=== PATIENT | male | born 1945 | race Caucasian/White ===

== ENCOUNTER → 2017-03-22 | Outpatient (CLI) | payer MEDICARE, MEDICAID ==
[~2017-03-22] MED LIST: ALBUTEROL0.83 MG/ML IH; ASPIRIN E.C. 8181 MG PO; HYTRIN 1MG C1 MG/CAP PO; IMDUR 30MG30 MG/TAB PO; K-DUR 10 MEQ T10 MEQ PO; LASIX 20MG TABL20 MG PO; NASAREL0.025 MG/1 NAS; NITROSTAT0.6 MG SL; NORCO 325 MG-51 TAB PO; PRINIVIL20 MG PO; PROAIR HFA0.09 MG/AC IH; RT ADVAIR HFA 1112 G IH; ULTRAM 50MG TAB50 MG PO; ZANAFLEX 4MG TAB4 MG PO
== END ==
LOC: MHCPAIN 12:46
DX: G89.29 Other chronic pain (principal); M47.27 Other spondylosis with radiculopathy, lumbosacral region; M53.3 Sacrococcygeal disorders, not elsewhere classified; M19.90 Unspecified osteoarthritis, unspecified site; Z87.891 Personal history of nicotine dependence; Z79.82 Long term (current) use of aspirin
CPT/HCPCS: G0463

== ENCOUNTER → 2017-04-22 | Outpatient (CLI) | payer MEDICARE, MEDICAID | LOC: MHCPAIN 08:27 | DX: G89.29 Other chronic pain (principal); M47.27 Other spondylosis with radiculopathy, lumbosacral region; M53.3 Sacrococcygeal disorders, not elsewhere classified; Z87.891 Personal history of nicotine dependence; Z79.82 Long term (current) use of aspirin | CPT/HCPCS: G0463 ==

== ENCOUNTER 2017-06-08 09:27 | Day surgery (SDC) | payer MEDICARE, MEDICAID ==
[~2017-06-08] VITALS: Ht 172.7 cm; Wt 110.6 kg
[2017-06-08] MEDS ORDERED: ASPIRIN E.C. 8181 MG PO (09:40)
[2017-06-08] MEDS ORDERED: PRINIVIL20 MG PO (09:41)
[2017-06-08] MEDS ORDERED: LASIX 20MG TABL20 MG PO (09:41)
[2017-06-08] MEDS ORDERED: ULTRAM 50MG TAB50 MG PO (09:42)
[2017-06-08] MEDS ORDERED: HYTRIN 1MG C1 MG/CAP PO (09:50)
[2017-06-08] MEDS ORDERED: K-DUR 10 MEQ T10 MEQ PO (09:51)
[2017-06-08] MEDS ORDERED: PROAIR HFA0.09 MG/AC IH (09:52)
[2017-06-08] MEDS ORDERED: ALBUTEROL0.83 MG/ML IH (09:53)
[2017-06-08] MEDS ORDERED: NASAREL0.025 MG/1 NAS (09:54)
[2017-06-08] MEDS ORDERED: NITROSTAT0.6 MG SL (09:55)
[2017-06-08] MEDS ORDERED: ZANAFLEX 4MG TAB4 MG PO (09:56)
[2017-06-08] MEDS ORDERED: RT ADVAIR HFA 1112 G IH (09:57)
[2017-06-08 10:11] LABS: HEMATOCRIT 37.8 % (42.0-52.0); HEMOGLOBIN 12.2 g/dl (13.5-18.0); MEAN CELL VOLUME 93 fl (80.0-100.0); MEAN CORPUSCULAR HEMOGLOBIN 30 pg (27.0-31.0); MEAN CORPUSCULAR HGB CONC 32 g/dl (33.0-37.0); MEAN PLATELET VOLUME 9.5 fl (7.4-10.4); PLATELET COUNT 146 K/mm3 (130-400); RED BLOOD COUNT 4.08 M/mm3 (4.20-5.60)
[2017-06-08 10:22] LABS: CALCIUM 9.3 mg/dL (8.4-10.2); CREATININE, serum 1.12 mg/dL (0.66-1.25); POTASSIUM 4.2 mmol/L (3.4-5.0); WHITE BLOOD COUNT 41.1 K/mm3 (4.8-10.8)
[2017-06-08 10:28] LABS: INR 1.1 (0.8-3.0); PROTHROMBIN TIME 11.8 SECONDS (9.7-12.8)
[2017-06-08 10:30] VITALS: BP 134/74; PULSE 67; TEMP 98
[2017-06-08 12:47] VITALS: BP 134/67; PULSE 67
[2017-06-08 15:20] VITALS: BP 134/67; PULSE 67; TEMP 98
[2017-06-08 15:50] VITALS: BP 135/68; PULSE 67; TEMP 98
[2017-06-08 16:40] VITALS: BP 140/67; PULSE 65; TEMP 98
[2017-06-08 18:00] VITALS: BP 132/48; PULSE 72; TEMP 97.7
== END 2017-06-08 21:35 | disposition home or self-care (01) ==
LOC: COL.CAR 09:27 → MEDICAL 15:50 → COL.CAR 21:35
PROVIDERS: Internal Medicine Interventional Cardiology
DX: I49.5 Sick sinus syndrome (principal); I47.2 Ventricular tachycardia; I10 Essential (primary) hypertension; I45.5 Other specified heart block; I25.10 Atherosclerotic heart disease of native coronary artery without angina pectoris; Z95.5 Presence of coronary angioplasty implant and graft; Z87.891 Personal history of nicotine dependence; Z82.49 Family history of ischemic heart disease and other diseases of the circulatory system; Z83.3 Family history of diabetes mellitus; Z82.3 Family history of stroke
CPT/HCPCS: OP; C1785; C1894; C1898; J0690; J2250; J3010; J7040

== ENCOUNTER 2017-06-12 00:43 | Emergency (ER) | payer MEDICARE, MEDICAID ==
[~2017-06-12] VITALS: Ht 172.7 cm; Wt 110.9 kg
[~2017-06-12 00:43] MED LIST changes: -IMDUR 30MG30 MG/TAB PO; -NORCO 325 MG-51 TAB PO
[2017-06-12 00:48] VITALS: TEMP 98.3
[2017-06-12 01:11] LABS: MEAN CELL VOLUME 93 fl (80.0-100.0); MEAN CORPUSCULAR HGB CONC 32 g/dl (33.0-37.0); MEAN PLATELET VOLUME 9.8 fl (7.4-10.4); PLATELET COUNT 110 K/mm3 (130-400); RED BLOOD COUNT 3.59 M/mm3 (4.20-5.60)
[2017-06-12 01:25] LABS: HEMATOCRIT 33.4 % (42.0-52.0); HEMOGLOBIN 10.8 g/dl (13.5-18.0); MEAN CORPUSCULAR HEMOGLOBIN 30 pg (27.0-31.0); WHITE BLOOD COUNT 39.6 K/mm3 (4.8-10.8)
[2017-06-12 01:26] LABS: ADD PATHOLOGY DIFF REVIEW NO
[2017-06-12 01:29] LABS: INR 1.1 (0.8-3.0); PROTHROMBIN TIME 12.3 SECONDS (9.7-12.8)
[2017-06-12 01:30] LABS: ADJUSTED CALCIUM 9.3 mg/dL (8.4-10.2); ALANINE AMINOTRANSFERASE 36 U/L (21-72); ALBUMIN 3.8 gm/dL (3.5-5.0); ALKALINE PHOSPHATASE 75 U/L (50-136); ANION GAP 10 mmol/L (7-16); BILIRUBIN,TOTAL 0.8 mg/dL (0.0-1.0); BLOOD UREA NITROGEN 18 mg/dL (9-20); CALCIUM 9.1 mg/dL (8.4-10.2); CARBON DIOXIDE 25 mmol/L (22-30); CHLORIDE 103 mmol/L (98-107); CREATININE, serum 1.19 mg/dL (0.66-1.25); GLUCOSE 134 mg/dL (74-106); LIPASE 62 U/L (23-300); POTASSIUM 4.4 mmol/L (3.4-5.0); SODIUM 138 mmol/L (137-145)
[2017-06-12 01:31] LABS: PARTIAL THROMBOPLASTIN TIME 29.9 SECONDS (26.0-37.0)
[2017-06-12 01:42] LABS: B-TYPE NATRIURETIC PEPTIDE 261 pg/mL (0-125)
[2017-06-12 01:43] LABS: TROPONIN-I < 0.012 ng/mL (0.000-0.034)
[2017-06-12 02:11] LABS: BAND 3 % (0-10); EOSINOPHIL 3 % (0-4); NEUTROPHILS 28 % (42.0-75.2); PLATELET ESTIMATE DECREASED (NORMAL); TOTAL CELLS COUNTED 100
[2017-06-12 02:15] LABS: LYMPHOCYTE 62 % (20.0-51.0)
[2017-06-12 05:21] VITALS: BP 124/77; PULSE 77
== END 2017-06-12 05:26 | disposition short-term general hospital (02) ==
LOC: COL.ER 00:43
PROVIDERS: Emergency Medicine
DX: T82.198A Other mechanical complication of other cardiac electronic device, initial encounter (principal); I25.2 Old myocardial infarction; Z95.0 Presence of cardiac pacemaker
CPT/HCPCS: J7030; J7050; Q9967

== ENCOUNTER 2017-08-08 10:27 | Emergency (ER) | payer MEDICARE, MEDICAID ==
[~2017-08-08] VITALS: Ht 172.7 cm; Wt 111.4 kg
[2017-08-08 10:36] VITALS: TEMP 97.3
[2017-08-08 10:57] LABS: MEAN CELL VOLUME 91 fl (80.0-100.0); MEAN CORPUSCULAR HGB CONC 32 g/dl (33.0-37.0); MEAN PLATELET VOLUME 9.6 fl (7.4-10.4); PLATELET COUNT 126 K/mm3 (130-400); RED BLOOD COUNT 3.64 M/mm3 (4.20-5.60); REDCELL DISTRIBUTION WIDTH-CV 13.9 % (11.5-14.5)
[2017-08-08 10:59] LABS: HEMATOCRIT 33.2 % (42.0-52.0); HEMOGLOBIN 10.6 g/dl (13.5-18.0); MEAN CORPUSCULAR HEMOGLOBIN 29 pg (27.0-31.0)
[2017-08-08 11:07] LABS: INR 1.1 (0.8-3.0); PROTHROMBIN TIME 12.9 SECONDS (9.7-12.8)
[2017-08-08 11:09] LABS: ALANINE AMINOTRANSFERASE 38 U/L (21-72); ALBUMIN 4.1 gm/dL (3.5-5.0); ALKALINE PHOSPHATASE 87 U/L (50-136); ANION GAP 9 mmol/L (7-16); AST,SGOT 38 U/L (15-37); BILIRUBIN,TOTAL 0.8 mg/dL (0.0-1.0); BLOOD UREA NITROGEN 26 mg/dL (9-20); CALCIUM 9.4 mg/dL (8.4-10.2); CARBON DIOXIDE 24 mmol/L (22-30); CHLORIDE 105 mmol/L (98-107); CREATININE, serum 1.19 mg/dL (0.66-1.25); GLUCOSE 103 mg/dL (74-106); PARTIAL THROMBOPLASTIN TIME 28.4 SECONDS (26.0-37.0); POTASSIUM 3.9 mmol/L (3.4-5.0); SODIUM 138 mmol/L (137-145); TOTAL PROTEIN 6.6 gm/dL (6.4-8.2)
[2017-08-08 11:12] LABS: BAND 1 % (0-10); EOSINOPHIL 1 % (0-4); NEUTROPHILS 23 % (42.0-75.2)
[2017-08-08 11:13] LABS: PLATELET ESTIMATE DECREASED (NORMAL)
[2017-08-08 11:14] LABS: HYPOCHROMIA 1+; POLYCHROMASIA 1+
[2017-08-08 11:15] LABS: LYMPHOCYTE 70 % (20.0-51.0)
[2017-08-08 11:20] LABS: TROPONIN-I < 0.012 ng/mL (0.000-0.034)
[2017-08-08 15:40] VITALS: BP 132/73; PULSE 75
== END 2017-08-08 15:44 | disposition left against medical advice (07) ==
LOC: COL.ER 10:27
PROVIDERS: Emergency Medicine
DX: I20.9 Angina pectoris, unspecified (principal); I10 Essential (primary) hypertension; E78.5 Hyperlipidemia, unspecified; Z95.0 Presence of cardiac pacemaker; Z85.6 Personal history of leukemia; Z79.82 Long term (current) use of aspirin

== ENCOUNTER 2017-09-19 07:47 | Day surgery (SDC) | payer MEDICARE, MEDICAID ==
[2017-09-19] VITALS (10 sets, daily range): BP systolic 109–142; BP diastolic 59–87; PULSE 64–80; TEMP 97.8
[~2017-09-19] VITALS: Ht 172.8 cm; Wt 105.7 kg
[2017-09-19 08:41] LABS: MEAN CELL VOLUME 89 fl (80.0-100.0); MEAN CORPUSCULAR HGB CONC 32 g/dl (33.0-37.0); MEAN PLATELET VOLUME 9.6 fl (7.4-10.4); PLATELET COUNT 140 K/mm3 (130-400); RED BLOOD COUNT 4.12 M/mm3 (4.20-5.60); REDCELL DISTRIBUTION WIDTH-CV 14.5 % (11.5-14.5)
[2017-09-19 08:42] LABS: INR 1.1 (0.8-3.0); PROTHROMBIN TIME 12.8 SECONDS (9.7-12.8)
[2017-09-19 08:45] LABS: CALCIUM 9.3 mg/dL (8.4-10.2); CREATININE, serum 1.1 mg/dL (0.66-1.25); POTASSIUM 4.1 mmol/L (3.4-5.0)
[2017-09-19 08:47] LABS: HEMATOCRIT 36.6 % (42.0-52.0); HEMOGLOBIN 11.8 g/dl (13.5-18.0); MEAN CORPUSCULAR HEMOGLOBIN 29 pg (27.0-31.0)
[2017-09-19] MEDS ORDERED: IMDUR 30MG30 MG/TAB PO (11:21)
== END 2017-09-19 17:31 | disposition home or self-care (01) ==
LOC: COL.CAR 07:47
PROVIDERS: Internal Medicine Cardiovascular Disease
DX: I25.82 Chronic total occlusion of coronary artery (principal); I48.0 Paroxysmal atrial fibrillation; R07.9 Chest pain, unspecified; I10 Essential (primary) hypertension; Z95.0 Presence of cardiac pacemaker; C91.10 Chronic lymphocytic leukemia of B-cell type not having achieved remission; I25.10 Atherosclerotic heart disease of native coronary artery without angina pectoris; J44.9 Chronic obstructive pulmonary disease, unspecified; I25.2 Old myocardial infarction; Z96.642 Presence of left artificial hip joint; Z88.8 Allergy status to other drugs, medicaments and biological substances; Z87.891 Personal history of nicotine dependence; Z68.36 Body mass index [BMI] 36.0-36.9, adult; E78.5 Hyperlipidemia, unspecified; M19.90 Unspecified osteoarthritis, unspecified site
CPT/HCPCS: J1644; J2250; J3010; J7030; Q9967

== ENCOUNTER → 2018-07-20 | Outpatient (CLI) | payer MEDICARE, MEDICAID ==
[~2018-07-20] MED LIST changes: +IMDUR 30MG30 MG/TAB PO
== END ==
LOC: COL.VAS 13:36
DX: R60.0 Localized edema (principal)

== ENCOUNTER 2019-01-17 13:26 | Emergency (ER) | payer MEDICARE, MEDICAID ==
[~2019-01-17] VITALS: Ht 172.7 cm; Wt 110.9 kg
[2019-01-17 13:38] VITALS: BP 140/84; TEMP 97.1
[2019-01-17] MEDS ORDERED: NORCO 325 MG-51 TAB PO (16:26)
[2019-01-17 18:41] VITALS: PULSE 98
== END 2019-01-17 18:40 | disposition home or self-care (01) ==
LOC: COL.ER 13:26
DX: M25.562 Pain in left knee (principal); E78.5 Hyperlipidemia, unspecified; I10 Essential (primary) hypertension; J44.9 Chronic obstructive pulmonary disease, unspecified; Z95.0 Presence of cardiac pacemaker

== ENCOUNTER → 2019-01-22 | Outpatient (CLI) | payer MEDICARE, MEDICAID ==
[~2019-01-22] MED LIST changes: +NORCO 325 MG-51 TAB PO
== END ==
LOC: COL.VAS 12:55
DX: M79.605 Pain in left leg (principal); R79.1 Abnormal coagulation profile

== ENCOUNTER → 2019-02-09 | Outpatient (CLI) | payer MEDICARE, MEDICAID | LOC: COL.RAD 07:46 | DX: M16.11 Unilateral primary osteoarthritis, right hip (principal) | CPT/HCPCS: J3301; Q9967 ==

== ENCOUNTER → 2020-05-26 | Outpatient (CLI) | payer MEDICARE, MEDICAID ==
[2020-05-26 21:50] LABS: CALCIUM 8.9 mg/dL (8.4-10.2); CREATININE, serum 0.99 (0.66-1.25); POTASSIUM 3.8 mmol/L (3.4-5.0)
[2020-05-27 08:05] LABS: BASO % 0.6 % (0.0-2.0); EOS # 0.5 (0.0-0.7); EOS % 6.3 % (0-4.0); GRAN # 4.7 (1.4-6.5); GRAN % 64.2 % (42.2-75.2); HEMATOCRIT 40.9 % (42.0-52.0); HEMOGLOBIN 13.1 g/dl (13.5-18.0); LYMPH # 1.2 (1.2-3.4); LYMPH % 16.4 % (20.0-51.0); MEAN CELL VOLUME 95 fl (80.0-100.0); MEAN CORPUSCULAR HEMOGLOBIN 30 pg (27.0-31.0); MEAN CORPUSCULAR HGB CONC 32 g/dl (33.0-37.0); MEAN PLATELET VOLUME 10.2 fl (7.4-10.4); MONO # 0.9 (0.1-0.6); MONO % 12.4 % (1.7-9.3); PLATELET COUNT 207 K/mm3 (130-400); RED BLOOD COUNT 4.32 M/mm3 (4.20-5.60); REDCELL DISTRIBUTION WIDTH-CV 13.2 % (11.5-14.5)
== END ==
LOC: ZCOL.LAB 19:47
PROVIDERS: Family Medicine
DX: Z01.89 Encounter for other specified special examinations (principal)

== ENCOUNTER 2020-10-29 16:38 | Observation (INO) | payer MEDICARE, MEDICAID ==
[~2020-10-29] VITALS: Ht 172.7 cm; Wt 110.7 kg
[~2020-10-29 16:38] MED LIST changes: +AMOXICILLIN 8751 TAB PO; +CARDIZEM CD 12120 MG PO; +LEXAPRO20 MG PO; +VERELAN120 MG PO
[2020-10-29 17:20] LABS: ALANINE AMINOTRANSFERASE 61 U/L (4-49); ALBUMIN 3.1 gm/dL (3.5-5.0); ALKALINE PHOSPHATASE 94 U/L (50-136); ANION GAP 7 mmol/L (7-16); AST,SGOT 86 U/L (15-37); BILIRUBIN,TOTAL 0.9 mg/dL (0.0-1.0); BLOOD UREA NITROGEN 16 mg/dL (9-20); CALCIUM 8.6 mg/dL (8.4-10.2); CARBON DIOXIDE 28 mmol/L (22-30); CHLORIDE 104 mmol/L (98-107); CREATININE, serum 0.94 (0.66-1.25); GLUCOSE 96 mg/dL (74-106); POTASSIUM 3.5 mmol/L (3.4-5.0); SODIUM 139 mmol/L (137-145); TOTAL PROTEIN 5.7 gm/dL (6.4-8.2)
[2020-10-29 17:27] LABS: HEMOGLOBIN 11.6 g/dl (13.5-18.0); MEAN CELL VOLUME 95 fl (80.0-100.0); MEAN CORPUSCULAR HEMOGLOBIN 31 pg (27.0-31.0); MEAN CORPUSCULAR HGB CONC 32 g/dl (33.0-37.0); MEAN PLATELET VOLUME 10.5 fl (7.4-10.4); PLATELET COUNT 236 K/mm3 (130-400); RED BLOOD COUNT 3.78 M/mm3 (4.20-5.60); REDCELL DISTRIBUTION WIDTH-CV 13.4 % (11.5-14.5)
[2020-10-29 17:29] LABS: HEMATOCRIT 35.9 % (42.0-52.0)
[2020-10-29 17:32] LABS: TROPONIN-I < 0.012 ng/mL (0.000-0.035)
[2020-10-29 18:39] LABS: BAND 2 % (0-10); EOSINOPHIL 1 % (0-4); LYMPHOCYTE 9 % (20.0-51.0); NEUTROPHILS 80 % (42.0-75.2)
[2020-10-29 18:59] LABS: COLLECTION METHOD CLEAN CATCH
[2020-10-29 19:09] LABS: MUCOUS Present /lpf; PH 5 (5-8); SQUAMOUS EPITHELIAL 0-2 /hpf; URINE APPEARANCE Clear; URINE BACTERIA None Seen /hpf; URINE BILIRUBIN Negative (NEGATIVE); URINE BLOOD Negative (NEGATIVE); URINE COLOR Yellow; URINE GLUCOSE Negative (NEGATIVE); URINE KETONE 1+ (NEGATIVE); URINE LEUKOCYTE ESTERASE Negative (NEGATIVE); URINE NITRATE Negative (NEGATIVE); URINE PROTEIN(semi-quant) 1+ (NEGATIVE); URINE RBC 0-2 /hpf; URINE UROBILINOGEN >=4.0 mg/dL (NEGATIVE)
[2020-10-29 20:31] VITALS: BP 178/89; PULSE 74; TEMP 98.9
[2020-10-29] MEDS ORDERED: VERAPAMIL120 MG/TA1 PO (20:51)
--- NOTE | 2020-10-29 21:10 | NUR ---
Patient to medical room 310 at this time with complaints of abdominal pain 03/27. 5 lap sites are noted on patient's abdomen; edges well approximated. Bowel sounds audible and abdomen is soft and obese. Patient is alert and oriented and ambulatory with SBA. Bilateral lower extremities are edematous with 2+ pitting. [place] catheter is placed per orders and patient is placed on contact isolation precautions pending CDIFF sample result. Patient oriented to fall precautions and call light system.
[2020-10-30] VITALS: BP 97/62; PULSE 65; TEMP 98
[2020-10-30 03:47] VITALS: BP 121/60; PULSE 68; TEMP 97.4
--- NOTE | 2020-10-30 06:30 | NUR ---
PT IS LAYING IN BED AT THIS TIME. DENIES ANY NEEDS AT THIS TIME. WILL CONTINUE TO MONITOR. WILL RETURN FOR ASSESSMENT. NO FURTHER CONCERNS AT THIS TIME.
[2020-10-30 07:44] VITALS: BP 149/90; PULSE 63; TEMP 97.4
--- NOTE | 2020-10-30 08:15 | NUR ---
PT IS REFUSING VERAPAMIL, STATES "I DON'T WANT THESE DOCTORS CHANGING MY CARDIAC MEDICATIONS WITHOUT DR. SHAFFER!"
--- NOTE | 2020-10-30 09:57 | NUR ---
PT RETURNED FROM CT. HAS C/O PAIN THAT HAS NOT DECREASED MUCH WITH THE MEDICATIONS GIVEN, WILL GIVE ANOTHER DOSE. PT HAS COMPLAINT OF CONSTIPATION AT THIS TIME, STATING "I WISH I COULD HAVE A BM THIS MORNING, IT FEELS LIKE I'M BACKED UP!" THERE ARE NO OTHER CONCERNS AT THIS TIME.
[2020-10-30 11:52] VITALS: BP 152/67; PULSE 64
--- NOTE | 2020-10-30 16:00 | NUR ---
SW met with the patient to discuss discharge plan and re-admit. The patient discharged on Tuesday, 10/28, and returned back home with homemaking services from [facility]. The patient was admitted yesterday for failure to thrive. The patient lives alone in [place]. He states that he has friend support in town. He reports needing assistance with ADLs before being admitted and has walkers. He receives home making services from [facility] and meals from the [facility]. He states that [facility] came out to see him, but really only gave him a list of different agencies that can help him. The patient's PCP is Dr. Kristen Tucker and he receives his medications from [facility]. He reports no difficulties obtaining his meds. The patient does not have a DPOA-HC in EMR, but he states that he does have one completed and that his friend, Yonas Yañez (ph#[phone]), is his DPOA-HC. Yonas lives in [place]. The patient reports that him and Yonas have a copy of the DPOA-HC. PT/OT worked with the patient and recommend home health vs post-acute rehab. SW discussed their recommendation and how he needed increased assistance before coming in. The patient states that he would be open to going somewhere for rehab when he left here and chose 1) [facility] 2) [facility]. SW contacted and faxed a referral to both facilities. Awaiting screens. SW attempted to contact his friend, Yonas, to review the above. SW left him a voicemail. *Discharge plan: Referrals out for SNF*
[2020-10-30 16:57] VITALS: BP 177/63; PULSE 85
--- NOTE | 2020-10-30 19:39 | NUR ---
PT HAD UNEVENTFUL DAY. DID NOT CALL FOR PAIN MEDICATIONS THROUGHOUT THE DAY. DOSED X2 FOR PAIN MANAGEMENT. PT IS GENERALLY UNPLEASANT ABOUT EVERYTHING, AND DOES NOT AGREE WITH HIS TREATMENT AT THIS TIME. HE STATES THAT HE SHOULD BE BEING TREATED BY A ELECTRODYNAMICIST IF THEY WANTED TO CHANGE HIS CARDIOLOGY MEDICATIONS. NO OTHER CONCERNS AT THIS TIME. REPORT GIVEN TO TEAM MEMBER RN.
--- NOTE | 2020-10-30 20:00 | NUR ---
Assessment complete. Patient is alert and oriented with a tolerable pain level in the abdomen at this time. 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 Lung sounds are clear. Bilateral lower extremity and feet edema is present with 2+ edema. No new concerns. Call light in reach.
[2020-10-30 20:10] VITALS: BP 133/67; PULSE 88; TEMP 98.7
[2020-10-31 00:01] VITALS: BP 113/67; PULSE 59; TEMP 97.5
[2020-10-31 04:00] VITALS: BP 149/67; PULSE 62; TEMP 98
--- NOTE | 2020-10-31 07:05 | NUR ---
Lying in bed with eyes open watching TV. Alert and oriented x4. Rates pain in abd 8/10, describes as constant, says that it is not really sharp but doesn't know how else to describe it. Lap sites x4 to abd ANANDA, all edges well approximated, no redness/swelling/discharge noted. Patient does have a lot of tenderness when lower abd has pressure applied or when lifting to look under pannus. Foely to dependent drainage with dark karlie urine with sediment noted. 2+ bilat lower extremity edema noted, which patient says that he has all the time. Patient would like pain medication if able to have. Denies additional needs.
[2020-10-31 07:25] VITALS: BP 174/85; PULSE 59; TEMP 98.2
--- NOTE | 2020-10-31 07:25 | NUR ---
Administer [place] as prescribed. Patient will order breakfast when ready.
[2020-10-31 08:01] LABS: HEMOGLOBIN 12.2 g/dl (13.5-18.0); MEAN CELL VOLUME 93 fl (80.0-100.0); MEAN CORPUSCULAR HEMOGLOBIN 31 pg (27.0-31.0); MEAN CORPUSCULAR HGB CONC 33 g/dl (33.0-37.0); MEAN PLATELET VOLUME 10.5 fl (7.4-10.4); PLATELET COUNT 212 K/mm3 (130-400); RED BLOOD COUNT 3.98 M/mm3 (4.20-5.60); REDCELL DISTRIBUTION WIDTH-CV 13.5 % (11.5-14.5)
[2020-10-31 08:04] LABS: HEMATOCRIT 36.8 % (42.0-52.0)
[2020-10-31 08:16] LABS: CALCIUM 8.4 mg/dL (8.4-10.2); CREATININE, serum 0.8 (0.66-1.25); MAGNESIUM 1.9 mg/dL (1.6-2.3); POTASSIUM 3.4 mmol/L (3.4-5.0)
[2020-10-31 08:17] VITALS: BP 167/60
[2020-10-31 08:46] LABS: BAND 4 % (0-10); LYMPHOCYTE 12 % (20.0-51.0); NEUTROPHILS 75 % (42.0-75.2)
[2020-10-31 08:47] LABS: PLATELET ESTIMATE NORMAL (NORMAL)
[2020-10-31 11:39] VITALS: BP 126/84; PULSE 62; TEMP 98
[2020-10-31] MEDS ORDERED: NORCO 325 MG-51 TAB PO (11:46)
[2020-10-31] MEDS ORDERED: AMOXICILLIN 8751 TAB PO (11:46)
[2020-10-31] MEDS ORDERED: LASIX 40MG TABL40 MG PO (11:47)
--- NOTE | 2020-10-31 11:50 | NUR ---
Lying in bed watching TV. Explain to the patient that Debo, social studies teacher, just received word that he has been accepted to [facility] for rehab. Explain that we will keep him updated on time for transport. Obtain Covid swab and send to lab at this time. Patient continues to have pain in lower abd and hip, is aware that it is too early to administer [place], and that I will bring as soon as we are able. Patient denies additional needs at this time.
[2020-10-31 11:57] VITALS: BP 126/84; PULSE 62; TEMP 98
[2020-10-31 12:03] LABS: ALBUMIN 2.9 gm/dL (3.5-5.0); BILIRUBIN UNCONJUGATED 0.3 mg/dL (0.0-1.1); BILIRUBIN,DIRECT 0.3 mg/dL (0.0-0.4); BILIRUBIN,TOTAL 0.6 mg/dL (0.0-1.0); TOTAL PROTEIN 5.6 gm/dL (6.4-8.2)
--- NOTE | 2020-10-31 12:11 | NUR ---
FRAN faxed updates to [facility] and [facility]. [facility] reports that they are able to accept the patient. SW updated the clinical team and the patient. The patient is to discharge today, 10/31, to [facility] for a skilled stay. Transportation was scheduled at 1400, via [facility]. FRAN informed the patient and his RN of the time. SW attempted to contact his friend, Yonas, to inform him of the time. SW left him a voicemail. No additional need at this time.
--- NOTE | 2020-10-31 12:36 | NUR ---
Message left at [facility] for the nurse to call this nurse back to give report.
--- NOTE | 2020-10-31 13:10 | NUR ---
Rating pain in abd /10 and in hip /10. Administer [place] as prescribed. Patient is aware that [facility] will be here around 1400 to pick him up. Denies additional needs.
--- NOTE | 2020-10-31 13:20 | NUR ---
Receive call from JASWINDER Flores at [facility]. Report provided.
--- NOTE | 2020-10-31 14:36 | NUR ---
[facility] here to pick up man patient. Patient assisted into wheelchair. Has all belongings packed up. [facility] staff assists patient out to vehicle.
== END 2020-10-31 14:36 ==
LOC: COL.ER 16:38 → SURG 18:23 → MEDICAL 23:45
PROVIDERS: Emergency Medicine; Family Medicine; ADMIT Internal Medicine
DX: R62.7 Adult failure to thrive (principal); A04.0 Enteropathogenic Escherichia coli infection; R32 Unspecified urinary incontinence; D72.829 Elevated white blood cell count, unspecified; R60.0 Localized edema; I48.91 Unspecified atrial fibrillation; I11.0 Hypertensive heart disease with heart failure; I50.20 Unspecified systolic (congestive) heart failure; I25.10 Atherosclerotic heart disease of native coronary artery without angina pectoris; I71.4 Abdominal aortic aneurysm, without rupture; D64.9 Anemia, unspecified; J44.9 Chronic obstructive pulmonary disease, unspecified; K80.20 Calculus of gallbladder without cholecystitis without obstruction; K57.90 Diverticulosis of intestine, part unspecified, without perforation or abscess without bleeding; E66.01 Morbid (severe) obesity due to excess calories; F32.9 Major depressive disorder, single episode, unspecified; F17.210 Nicotine dependence, cigarettes, uncomplicated; Z79.82 Long term (current) use of aspirin; Z20.822 Contact with and (suspected) exposure to COVID-19; Z79.899 Other long term (current) drug therapy; Z79.891 Long term (current) use of opiate analgesic; Z79.52 Long term (current) use of systemic steroids; Z96.642 Presence of left artificial hip joint; Z96.612 Presence of left artificial shoulder joint; Z88.8 Allergy status to other drugs, medicaments and biological substances
CPT/HCPCS: 99222-AI; G0378; J3010; J7030; Q9967

== ENCOUNTER 2020-11-24 16:14 | Inpatient (IN) | payer MEDICARE, MEDICAID ==
[~2020-11-24] VITALS: Ht 172.7 cm; Wt 110.8 kg
[~2020-11-24 16:14] MED LIST changes: +LASIX 40MG TABL40 MG PO; +VERAPAMIL120 MG/TA1 PO
[2020-11-24 17:51] LABS: ALBUMIN 3.4 gm/dL (3.5-5.0); BASO % 0.3 % (0.0-2.0); CALCIUM 8.9 mg/dL (8.4-10.2); CREATININE, serum 0.93 (0.66-1.25); EOS # 0.4 (0.0-0.7); EOS % 2.4 % (0-4.0); GRAN # 10.2 (1.4-6.5); HEMATOCRIT 40.5 % (42.0-52.0); HEMOGLOBIN 13.1 g/dl (13.5-18.0); LYMPH # 2.5 (1.2-3.4); LYMPH % 17.5 % (20.0-51.0); MEAN CELL VOLUME 92 fl (80.0-100.0); MEAN CORPUSCULAR HEMOGLOBIN 30 pg (27.0-31.0); MEAN CORPUSCULAR HGB CONC 32 g/dl (33.0-37.0); MEAN PLATELET VOLUME 10.7 fl (7.4-10.4); MONO # 1.1 (0.1-0.6); MONO % 7.9 % (1.7-9.3); PLATELET COUNT 274 K/mm3 (130-400); POTASSIUM 3.5 mmol/L (3.4-5.0); RED BLOOD COUNT 4.41 M/mm3 (4.20-5.60); REDCELL DISTRIBUTION WIDTH-CV 12.8 % (11.5-14.5); TOTAL PROTEIN 6.8 gm/dL (6.4-8.2)
[2020-11-24 18:24] LABS: C-REACTIVE PROTEIN 16.5 mg/dL (0.0-0.9)
[2020-11-24 18:38] LABS: COLLECTION METHOD IN
[2020-11-24 18:50] LABS: MUCOUS Present /lpf; PH 5 (5-8); SQUAMOUS EPITHELIAL None Seen /hpf; URINE APPEARANCE Cloudy; URINE BACTERIA Rare /hpf; URINE BILIRUBIN Negative (NEGATIVE); URINE BLOOD 3+ (NEGATIVE); URINE COLOR Yellow; URINE GLUCOSE Negative (NEGATIVE); URINE KETONE Negative (NEGATIVE); URINE LEUKOCYTE ESTERASE 3+ (NEGATIVE); URINE NITRATE Negative (NEGATIVE); URINE PROTEIN(semi-quant) 1+ (NEGATIVE); URINE RBC >50 /hpf; URINE UROBILINOGEN Negative (NEGATIVE)
[2020-11-24 21:30] VITALS: BP 150/75; PULSE 72; TEMP 97.8
[2020-11-24] MEDS ORDERED: ZOFRAN 4MG T4 MG/TAB PO (21:49)
[2020-11-24 23:10] VITALS: BP 180/80; PULSE 71; TEMP 98.5
[2020-11-25] VITALS (10 sets, daily range): BP systolic 110–145; BP diastolic 37–87; PULSE 63–82; TEMP 97.3–98.8
[2020-11-25 08:17] LABS: ALBUMIN 2.7 gm/dL (3.5-5.0); BILIRUBIN,TOTAL 0.4 mg/dL (0.0-1.0); CREATININE, serum 0.86 (0.66-1.25); POTASSIUM 3.6 mmol/L (3.4-5.0); TOTAL PROTEIN 5.3 gm/dL (6.4-8.2)
[2020-11-25 08:22] LABS: MEAN CELL VOLUME 92 fl (80.0-100.0); MEAN CORPUSCULAR HGB CONC 32 g/dl (33.0-37.0); MEAN PLATELET VOLUME 10.1 fl (7.4-10.4); PLATELET COUNT 247 K/mm3 (130-400); RED BLOOD COUNT 3.28 M/mm3 (4.20-5.60); REDCELL DISTRIBUTION WIDTH-CV 12.9 % (11.5-14.5)
[2020-11-25 08:32] LABS: HEMATOCRIT 30.1 % (42.0-52.0); HEMOGLOBIN 9.7 g/dl (13.5-18.0); MEAN CORPUSCULAR HEMOGLOBIN 30 pg (27.0-31.0)
[2020-11-25 09:30] LABS: BAND 7 % (0-10); EOSINOPHIL 5 % (0-4); LYMPHOCYTE 13 % (20.0-51.0); METAMYELOCYTE 1 % (0-0); NEUTROPHILS 67 % (42.0-75.2)
[2020-11-25 09:37] LABS: HYPOCHROMIA 1+; PLATELET ESTIMATE NORMAL (NORMAL)
[2020-11-25 14:24] LABS: HEMATOCRIT 29.9 % (42.0-52.0); HEMOGLOBIN 9.7 g/dl (13.5-18.0)
[2020-11-25 19:46] LABS: HEMATOCRIT 28.6 % (42.0-52.0); HEMOGLOBIN 9.3 g/dl (13.5-18.0)
[2020-11-26] VITALS (13 sets, daily range): BP systolic 80–168; BP diastolic 50–80; PULSE 61–76; TEMP 97.3–98.8
[2020-11-26 01:14] LABS: HEMATOCRIT 23.2 % (42.0-52.0); HEMOGLOBIN 7.5 g/dl (13.5-18.0)
[2020-11-26 06:54] LABS: CALCIUM 8.1 mg/dL (8.4-10.2); CREATININE, serum 0.96 (0.66-1.25); POTASSIUM 3.6 mmol/L (3.4-5.0)
[2020-11-26 06:55] LABS: MEAN CELL VOLUME 91 fl (80.0-100.0); MEAN CORPUSCULAR HGB CONC 33 g/dl (33.0-37.0); MEAN PLATELET VOLUME 10.1 fl (7.4-10.4); PLATELET COUNT 236 K/mm3 (130-400); REDCELL DISTRIBUTION WIDTH-CV 13.5 % (11.5-14.5)
[2020-11-26 07:15] LABS: HEMATOCRIT 28.3 % (42.0-52.0); HEMOGLOBIN 9.4 g/dl (13.5-18.0); MEAN CORPUSCULAR HEMOGLOBIN 30 pg (27.0-31.0)
[2020-11-26 08:32] LABS: BAND 9 % (0-10); BASOPHIL 1 % (0-2); EOSINOPHIL 2 % (0-4); LYMPHOCYTE 25 % (20.0-51.0); METAMYELOCYTE 1 % (0-0); NEUTROPHILS 56 % (42.0-75.2); PLATELET ESTIMATE NORMAL (NORMAL)
[2020-11-26 17:42] LABS: HEMATOCRIT 24.2 % (42.0-52.0)
[2020-11-27 01:44] LABS: HEMATOCRIT 24.6 % (42.0-52.0); HEMOGLOBIN 8.1 g/dl (13.5-18.0)
[2020-11-27 03:53] VITALS: BP 111/59; PULSE 63; TEMP 98.6
[2020-11-27 06:01] LABS: MEAN CELL VOLUME 91 fl (80.0-100.0); MEAN CORPUSCULAR HGB CONC 34 g/dl (33.0-37.0); PLATELET COUNT 225 K/mm3 (130-400); RED BLOOD COUNT 2.62 M/mm3 (4.20-5.60); REDCELL DISTRIBUTION WIDTH-CV 13.8 % (11.5-14.5)
[2020-11-27 06:05] LABS: HEMATOCRIT 23.8 % (42.0-52.0); MEAN CORPUSCULAR HEMOGLOBIN 31 pg (27.0-31.0)
[2020-11-27 06:09] LABS: CREATININE, serum 0.9 (0.66-1.25); POTASSIUM 3.2 mmol/L (3.4-5.0)
[2020-11-27 07:03] VITALS: BP 135/71; PULSE 63; TEMP 97.7
[2020-11-27 07:31] LABS: BAND 17 % (0-10); EOSINOPHIL 3 % (0-4); LYMPHOCYTE 12 % (20.0-51.0); METAMYELOCYTE 4 % (0-0); NEUTROPHILS 55 % (42.0-75.2); NUCLEATED RED BLOOD CELL 1 (0-6); PLATELET ESTIMATE NORMAL (NORMAL)
[2020-11-27] MEDS ORDERED: TYLENOL 325MG325 MG PO (09:30)
[2020-11-27] MEDS ORDERED: PROTONIX 40MG T40 MG PO (09:33)
[2020-11-27] MEDS ORDERED: CARAFATE 1GM1 G PO (09:33)
[2020-11-27] MEDS ORDERED: NORCO 325 MG-51 TAB PO (09:34)
[2020-11-27] MEDS ORDERED: CIPRO 500MG TA500 MG PO (09:46)
[2020-11-27 12:50] VITALS: BP 130/59; PULSE 63; TEMP 98.3
== END 2020-11-27 16:30 | DRG 378 ==
LOC: COL.ER 16:14 → SURG 19:28
PROVIDERS: Internal Medicine Gastroenterology; Nurse Practitioner; Nurse Practitioner Family; Physician Assistant; ADMIT Student in an Organized Health Care Education/Training Program
PROC: 0DJ08ZZ Inspection of Upper Intestinal Tract, Via Natural or Artificial Opening Endoscopic (ICD-10-PCS; principal; 2020-11-25 12:00)
DX: K26.4 Chronic or unspecified duodenal ulcer with hemorrhage (principal); N39.0 Urinary tract infection, site not specified; I50.22 Chronic systolic (congestive) heart failure; D62 Acute posthemorrhagic anemia; K52.1 Toxic gastroenteritis and colitis; Z96.612 Presence of left artificial shoulder joint; Z96.642 Presence of left artificial hip joint; F17.210 Nicotine dependence, cigarettes, uncomplicated; E66.01 Morbid (severe) obesity due to excess calories; R62.7 Adult failure to thrive; R32 Unspecified urinary incontinence; I11.0 Hypertensive heart disease with heart failure; I25.10 Atherosclerotic heart disease of native coronary artery without angina pectoris; K57.90 Diverticulosis of intestine, part unspecified, without perforation or abscess without bleeding; J44.9 Chronic obstructive pulmonary disease, unspecified; F32.9 Major depressive disorder, single episode, unspecified; K21.00 Gastro-esophageal reflux disease with esophagitis, without bleeding; T39.395A Adverse effect of other nonsteroidal anti-inflammatory drugs [NSAID], initial encounter; I71.4 Abdominal aortic aneurysm, without rupture; B96.20 Unspecified Escherichia coli [E. coli] as the cause of diseases classified elsewhere; Z20.822 Contact with and (suspected) exposure to COVID-19; T50.995A Adverse effect of other drugs, medicaments and biological substances, initial encounter; B96.5 Pseudomonas (aeruginosa) (mallei) (pseudomallei) as the cause of diseases classified elsewhere; K80.80 Other cholelithiasis without obstruction; Z95.0 Presence of cardiac pacemaker
CPT/HCPCS: 99223-AI; 99232-AI; 99233-AI; 99239; A4314; C9113; G0378; J0696; J2405; J2543; J2550; J2704; J3010; J7030; P9016; Q9967

== ENCOUNTER → 2020-12-04 | Outpatient (CLI) | payer MEDICARE, MEDICAID ==
[~2020-12-04] MED LIST changes: +BREO ELLIPTA 21 EACH IH; +BREO IH; +CARAFATE 1GM1 G PO; +CIPRO 500MG TA500 MG PO; +FOLIC ACID 11 MG/TA1 PO; +IRON TABLETS325 MG PO; +K-DUR20 MEQ PO; +PROTONIX 40MG T40 MG PO; +TYLENOL 325MG325 MG PO; +VITAMIN C500 MG PO; +ZOFRAN 4MG T4 MG/TAB PO
[2020-12-04 14:29] LABS: BASO % 0.3 % (0.0-2.0); EOS # 0.3 (0.0-0.7); EOS % 4.2 % (0-4.0); GRAN # 4.3 (1.4-6.5); GRAN % 56.3 % (42.2-75.2); LYMPH # 2.2 (1.2-3.4); LYMPH % 28.3 % (20.0-51.0); MEAN CELL VOLUME 95 fl (80.0-100.0); MEAN CORPUSCULAR HGB CONC 31 g/dl (33.0-37.0); MONO # 0.8 (0.1-0.6); MONO % 10.4 % (1.7-9.3); PLATELET COUNT 309 K/mm3 (130-400); RED BLOOD COUNT 2.73 M/mm3 (4.20-5.60); REDCELL DISTRIBUTION WIDTH-CV 14.6 % (11.5-14.5)
[2020-12-04 14:37] LABS: HEMOGLOBIN 8.1 g/dl (13.5-18.0); MEAN CORPUSCULAR HEMOGLOBIN 30 pg (27.0-31.0)
== END ==
LOC: ZLAB.STJ 13:31
PROVIDERS: Family Medicine
DX: Z01.89 Encounter for other specified special examinations (principal)

== ENCOUNTER → 2020-12-16 | Outpatient (REF) ==
[2020-12-16 12:45] LABS: BASO % 0.2 % (0.0-2.0); EOS # 0.4 (0.0-0.7); EOS % 5.8 % (0-4.0); GRAN % 46.6 % (42.2-75.2); LYMPH # 2.5 (1.2-3.4); LYMPH % 38.2 % (20.0-51.0); MEAN CELL VOLUME 93 fl (80.0-100.0); MEAN CORPUSCULAR HGB CONC 31 g/dl (33.0-37.0); MEAN PLATELET VOLUME 9.7 fl (7.4-10.4); MONO # 0.5 (0.1-0.6); MONO % 8.3 % (1.7-9.3); PLATELET COUNT 232 K/mm3 (130-400); RED BLOOD COUNT 3.43 M/mm3 (4.20-5.60); REDCELL DISTRIBUTION WIDTH-CV 13.9 % (11.5-14.5)
[2020-12-16 12:46] LABS: HEMATOCRIT 31.9 % (42.0-52.0); HEMOGLOBIN 9.8 g/dl (13.5-18.0); MEAN CORPUSCULAR HEMOGLOBIN 29 pg (27.0-31.0)
== END ==
LOC: ZLAB.STJ 12:40
PROVIDERS: Family Medicine
DX: I50.32 Chronic diastolic (congestive) heart failure (principal)

== ENCOUNTER → 2020-12-18 | Outpatient (REF) | LOC: ZLAB.STJ 11:15 | DX: D64.9 Anemia, unspecified (principal) ==

== ENCOUNTER 2021-01-09 10:24 | Inpatient (IN) | payer MEDICARE, MEDICAID ==
[~2021-01-09] VITALS: Ht 172.8 cm; Wt 110.2 kg
[~2021-01-09 10:24] MED LIST changes: -BREO ELLIPTA 21 EACH IH; -BREO IH; -FOLIC ACID 11 MG/TA1 PO; -IRON TABLETS325 MG PO; -K-DUR20 MEQ PO; -VITAMIN C500 MG PO
[2021-03-10] MEDS ORDERED: K-DUR20 MEQ PO (10:26)
[2021-03-10] MEDS ORDERED: VERAPAMIL120 MG/TA1 PO (10:26)
[2021-03-10] MEDS ORDERED: FOLIC ACID 11 MG/TA1 PO (10:27)
[2021-03-10] MEDS ORDERED: VITAMIN C500 MG PO (10:27)
[2021-03-10] MEDS ORDERED: IRON TABLETS325 MG PO (10:28)
[2021-03-10] MEDS ORDERED: ASPIRIN E.C. 8181 MG PO (10:29)
[2021-03-10] MEDS ORDERED: BREO ELLIPTA 21 EACH IH (10:33)
[2021-03-10] MEDS ORDERED: BREO IH (10:33)
[2021-04-27] VITALS (12 sets, daily range): BP systolic 138–174; BP diastolic 76–97; PULSE 71–91; TEMP 97.6–98.3
[2021-04-28 00:01] VITALS: BP 124/56; PULSE 67; TEMP 97.6
--- NOTE | 2021-04-28 01:49 | NUR ---
ALERT AND OX4. DENIES SOA, CHEST PAIN OR DIZZY. HAS AMBULATED,VOIDED TOLERATED DIET. ROXYCODONE FOR PAIN. DSG TO RT HIP C/D/I . DESCRIBES PAIN A DEEP BURING. PM MEDS GIVEN. RESTING IN RECLINER W LEGS ELEVATED. DOES NOT WANT TO SLEEP IN THE BED. CALL LIGHT WI REACH. NEEDS ARE MET.
[2021-04-28 04:46] VITALS: BP 142/87; PULSE 79; TEMP 98
[2021-04-28 07:00] VITALS: BP 146/76; PULSE 74; TEMP 97.8
[2021-04-28 07:52] LABS: HEMATOCRIT 40.8 % (42.0-52.0); HEMOGLOBIN 12.9 g/dl (13.5-18.0)
--- NOTE | 2021-04-28 09:27 | NUR ---
Patient alert and oriented, answers questions appropriately. See assessment. Right hip Aquacel dressing CDI. Pulses palpable to RLE, sensation intact. ALAN hose in place. Post op exercises and activity reviewed with patient. No c/o at this time.
--- NOTE | 2021-04-28 10:07 | NUR ---
FRAN met with the patient to discuss discharge plan. The patient lives alone in [place]. He reports independence with ADLs and has a FWW, rollator, and an electric wheelchair. The patient states that he has a private duty caregiver from [address] [place] [address] and receives 18 1/2 hours a week from them. He reports that his caregiver just quit though and that [address] [place] [address] has given him a list of new caregivers that he can hire. The patient states that he plans on calling the people on the list to hire a new caregiver. He also receives home health services from [facility]. FRAN contacted Cheryl at [facility] and confirmed services. FRAN faxed updates to [facility]. The patient's PCP is Dr. Kristen Tucker and he [facility] his [facility]. He reports no difficulties obtaining his meds. The patient's DPOA-HC in EMR and it designates his friend, Mariana Branch (ph#[phone]). The patient plans to return home and resume home health services from [facility] and private duty services from [address] [place] [address]. FRAN updated the patient's RN on the above. SW to continue to follow. *Discharge plan: home with home health and private duty services*
[2021-04-28 10:30] VITALS: BP 125/79; PULSE 73; TEMP 98.3
--- NOTE | 2021-04-28 10:57 | NUR ---
First visit from the web ui software engineer. No needs right now.
[2021-04-28 16:00] VITALS: BP 134/69; PULSE 71; TEMP 98
--- NOTE | 2021-04-28 21:15 | NUR ---
ALERT AND OX4. DENIES SOA, CHEST PAIN OR DIZZY. SETTING UP IN RECLINER W LEGS ELEVATED. OXYCODONE FOR PAIN DENIES NEED NOW. PASSING GAS. AMB W WALKER SAFELY. DSG TO RT HIP C/D/I. CALL LIGHT WI REACH. POSSIBLE DC TOMORROW.
[2021-04-28 23:54] VITALS: BP 168/74; PULSE 69; TEMP 98.2
[2021-04-29 03:58] VITALS: BP 159/77; PULSE 69; TEMP 98.4
--- NOTE | 2021-04-29 05:51 | NUR ---
RESTED THROUGH THE NIGHT WITHOUT INCIDENT. ANTICIPATES DC TODAY.
[2021-04-29 06:55] LABS: HEMATOCRIT 40.9 % (42.0-52.0); HEMOGLOBIN 12.6 g/dl (13.5-18.0)
[2021-04-29 07:56] VITALS: BP 145/57; PULSE 69; TEMP 97.6
--- NOTE | 2021-04-29 10:18 | NUR ---
PT OUT TO [facility] WITH THERAPY, AMBULATED OVER 100 FT WITH STEADY GAIT. EATING AND DRINKING WELL. DRESSING CDI, PLAN ON DISCHARGE LATER THIS PM.
--- NOTE | 2021-04-29 11:14 | NUR ---
The patient is to discharge back home today, 04/29, with home health services for fdc/PT/OT from [facility] and continued private duty services from [address] [place] [address]. SW notified and faxed discharge orders to [facility]. No additional needs at this time.
[2021-04-29 11:16] VITALS: BP 135/76; PULSE 66; TEMP 98.3
--- NOTE | 2021-04-29 13:28 | NUR ---
DISCHARGE INSTRUCTIONS REVIEWED WITH PT. PT VERBALIZED UNDERSTANDING. PT LEFT PER WHEEL CHAIR WITH STAFF @ 0842.
== END 2021-04-29 12:30 | disposition home health service (06) | DRG 470 ==
LOC: SURG 02-24 07:30 → INPTSU 04-27 05:32 → SURG 04-27 05:32 → MEDICAL 04-29 13:23
PROVIDERS: ADMIT Orthopaedic Surgery Sports Medicine
PROC: 0SR90JZ Replacement of Right Hip Joint with Synthetic Substitute, Open Approach (ICD-10-PCS; principal; 2021-04-27 07:30)
DX: M16.11 Unilateral primary osteoarthritis, right hip (principal); D64.9 Anemia, unspecified; J44.9 Chronic obstructive pulmonary disease, unspecified; Z20.822 Contact with and (suspected) exposure to COVID-19; Z79.82 Long term (current) use of aspirin; Z87.891 Personal history of nicotine dependence; Z88.8 Allergy status to other drugs, medicaments and biological substances
CPT/HCPCS: A9284; C1776; J0690; J2250; J2370; J2704; J3010; J7060; J7120

== ENCOUNTER 2021-03-10 09:16 | Day surgery (SDC) | payer MEDICARE, MEDICAID ==
[~2021-03-10] VITALS: Ht 172.7 cm; Wt 112.1 kg
[2021-03-10] VITALS (11 sets, daily range): BP systolic 120–165; BP diastolic 53–108; PULSE 58–70; TEMP 98.1
[2021-03-10 09:57] LABS: HEMOGLOBIN 12.3 g/dl (13.5-18.0); MEAN CELL VOLUME 82 fl (80.0-100.0); MEAN CORPUSCULAR HEMOGLOBIN 26 pg (27.0-31.0); MEAN CORPUSCULAR HGB CONC 32 g/dl (33.0-37.0); MEAN PLATELET VOLUME 9.6 fl (7.4-10.4); PLATELET COUNT 206 K/mm3 (130-400); RED BLOOD COUNT 4.78 M/mm3 (4.20-5.60); REDCELL DISTRIBUTION WIDTH-CV 14.6 % (11.5-14.5)
[2021-03-10 10:05] LABS: INR 1.1 (0.8-3.0); PROTHROMBIN TIME 12.3 SECONDS (9.7-12.8)
[2021-03-10 10:06] LABS: CALCIUM 9.1 mg/dL (8.4-10.2); CREATININE, serum 0.98 (0.66-1.25); POTASSIUM 3.5 mmol/L (3.4-5.0)
[2021-03-10 10:08] LABS: PARTIAL THROMBOPLASTIN TIME 29.3 SECONDS (26.0-37.0)
[2021-03-10] MEDS ORDERED: K-DUR20 MEQ PO (10:26)
[2021-03-10] MEDS ORDERED: VERAPAMIL120 MG/TA1 PO (10:26)
[2021-03-10] MEDS ORDERED: VITAMIN C500 MG PO (10:27)
[2021-03-10] MEDS ORDERED: FOLIC ACID 11 MG/TA1 PO (10:27)
[2021-03-10] MEDS ORDERED: IRON TABLETS325 MG PO (10:28)
[2021-03-10] MEDS ORDERED: ASPIRIN E.C. 8181 MG PO (10:29)
[2021-03-10] MEDS ORDERED: BREO IH (10:33)
[2021-03-10] MEDS ORDERED: BREO ELLIPTA 21 EACH IH (10:33)
== END 2021-03-10 17:59 | disposition home or self-care (01) ==
LOC: COL.CAR 09:16
PROVIDERS: Internal Medicine Cardiovascular Disease
DX: I25.10 Atherosclerotic heart disease of native coronary artery without angina pectoris (principal); I49.5 Sick sinus syndrome; R94.39 Abnormal result of other cardiovascular function study; E78.5 Hyperlipidemia, unspecified; J44.9 Chronic obstructive pulmonary disease, unspecified; Z79.899 Other long term (current) drug therapy; Z20.822 Contact with and (suspected) exposure to COVID-19; Z95.0 Presence of cardiac pacemaker
CPT/HCPCS: C1769; J1644; J2250; J3010